=== PATIENT | female | born 1965 ===

== ENCOUNTER 2020-11-22 05:19 | Day surgery (SDC) | payer OTHER ==
[~2020-11-22 05:19] MED LIST: ARIMIDEX PO; DEPAKOTE ER250 MG PO; FOLIC ACID0.8 M1 PO; LEVO-T88 MCG PO; RESTORIL30 MG PO; SEROQUEL XR400 MG PO; TRAZODONE HCL150 MG PO; ZOLOFT100 MG PO
[2020-11-22] MEDS ORDERED: PERCOCET 5-3251 EACH PO (08:39)
[2020-11-22] MEDS ORDERED: KETO10TA2 PO (08:39)
[2020-11-22] MEDS ORDERED: NEURONTIN300 MG PO (08:41)
== END 2020-11-22 15:00 | disposition home or self-care (01) ==
LOC: CIR.AMB 05:19
PROVIDERS: ATTEND Surgery
DX: K60.1 Chronic anal fissure (principal); K62.4 Stenosis of anus and rectum; Z20.822 Contact with and (suspected) exposure to COVID-19

== ENCOUNTER → 2021-04-19 08:00 | Outpatient (CLI) | payer OTHER ==
[~2021-04-19 08:00] MED LIST changes: +KETO10TA2 PO; +NEURONTIN300 MG PO; +PERCOCET 5-3251 EACH PO
== END | disposition home or self-care (01) ==
LOC: LAB 08:00 → ADM 13:00 → EDSTATUS 04-26 13:00 → AMB-ENDOS 04-26 13:00
PROVIDERS: ATTEND Surgery
DX: Z20.828 Contact with and (suspected) exposure to other viral communicable diseases (principal); K62.5 Hemorrhage of anus and rectum; K59.4 Anal spasm; K60.1 Chronic anal fissure

== ENCOUNTER 2021-06-21 05:50 | Day surgery (SDC) | payer OTHER | END 2021-06-21 12:30 | disposition home or self-care (01) | LOC: AMB-ENDOS 05:50 | PROVIDERS: ATTEND Surgery | DX: D12.0 Benign neoplasm of cecum (principal); D12.2 Benign neoplasm of ascending colon; Z20.822 Contact with and (suspected) exposure to COVID-19; Z12.11 Encounter for screening for malignant neoplasm of colon ==